=== PATIENT | male | born 1955 | race Caucasian/White ===

== ENCOUNTER → 2017-11-14 | Outpatient (CLI) | payer OTHER ==
[~2017-11-14] MED LIST: NORCO 5-325 TA1 EACH PO; PENICILLIN VK500 M1 PO
--- NOTE | 2017-11-14 13:23 | 2DMMODE ---
[place] [address] 2 D/M-MODE ECHOCARDIOGRAM Name: JESSADAMS Josie Room: [facility]#: [id number] Admission: 11/14/17 Attend Phys: Gabrielle Valenzuela Discharge: Date of : 55 Date of Service: 11/14/17 1322 Report #: [id number] THIS REPORT FOR: //name// APPROVED REPORT Study performed: 11/14/2017 10:13:23 EXAM: Comprehensive 2D, Doppler, and color-flow Echocardiogram Patient Location: Out-Patient Status: routine BSA: 2.39 HR: 68 bpm BP: 126/70 mmHg Other Information Study Quality: Good Indications Murmur Pulmonary effusion 2D Dimensions LVEF(%): 78.97 (>50%) IVSd: 11.82 (7-11mm) LVOT Diam: 20.91 (18-24mm) LVDd: 48.81 mm PWd: 11.42 (7-11mm) Ascending Ao: 32.71 (22-36mm) LVDs: 25.53 (25-40mm) Aortic Root: 33.42 mm Kerr's LVEF: 78.97 % Volumes Left Atrial Volume (Systole) LA ESV Index: 16.50 mL/m2 Aortic Valve AoV Peak Jules.: 1.65 m/s AO Peak Gr.: 10.89 mmHg LVOT Max P.30 mmHg AO Mean Gr.: 6.27 mmHg LVOT Mean P.64 mmHg LVOT Max V: 1.75 m/s AO V2 VTI: 28.38 cm LVOT Mean V: 1.08 m/s ALMA (VTI): 3.98 cm2 LVOT V1 VTI: 32.94 cm Mitral Valve E/A Ratio: 0.76 [place] [address] 2 D/M-MODE ECHOCARDIOGRAM Name: ADAMS MERCADO Room: [facility]#: [id number] Admission: 11/14/17 Attend Phys: Gabrielle Valenzuela Discharge: Date of : 55 Date of Service: 11/14/17 1322 Report #: [id number] MV Decel. Time: 279.71 ms MV E Max Jules.: 0.52 m/s MV PHT: 81.12 ms MVA (PHT): 2.71 cm2 TDI E/Lateral E': 5.20 E/Medial E': 7.43 Medial E' Jules.: 0.07 m/s Lateral E' Jules.: 0.10 m/s Pulmonary Valve PV Peak Jules.: 1.19 m/s PV Peak Gr.: 5.71 mmHg Tricuspid Valve RAP Estimate: 5.00 mmHg TR Peak Gr.: 18.30 mmHg RVSP: 23.30 mmHg PA Pressure: 23.30 mmHg Left Ventricle The left ventricle is normal size. There is normal LV segmental wall motion. Mild concentric left ventricular hypertrophy. Left ventricular systolic function is normal. LVEF is 60-65%. Grade I - abnormal relaxation pattern. Right Ventricle The right ventricle is normal size. The right ventricular systolic function is normal. Atria The left atrium size is normal. The right atrium size is normal. Aortic Valve The aortic valve is normal in structure. No aortic regurgitation is present. There is no aortic valvular stenosis. Mitral Valve The mitral valve is normal in structure. There is no mitral valve regurgitation noted. No evidence of mitral valve stenosis. Tricuspid Valve The tricuspid valve is normal in structure. Mild tricuspid regurgitation. The RVSP is 25 mmHg. Pulmonic Valve The pulmonary valve is normal in structure[place] [address] 2 D/M-MODE ECHOCARDIOGRAM Name: ADAMS MERCADO Room: [facility]#: [id number] Admission: 11/14/17 Attend Phys: Gabrielle Valenzuela Discharge: Date of : 55 Date of Service: 11/14/17 1322 Report #: [id number] regurgitation. Great Vessels The aortic root is normal in size. IVC is normal in size and collapses with >50% inspiration Pericardium There is no pericardial effusion. <Conclusion> The left ventricle is normal size. Mild concentric left ventricular hypertrophy. Left ventricular systolic function is normal. LVEF is 60-65%. Grade I - abnormal relaxation pattern. Mild tricuspid regurgitation. The RVSP is 25 mmHg. IVC is normal in size and collapses with >50% inspiration <ELECTRONICALLY SIGNED> By: Vipul Dill MD, FACC 11/14/17 1322 132 21 Vipul Dill MD, FACC /INF
== END ==
LOC: M.CRD 09:46
DX: I07.1 Rheumatic tricuspid insufficiency (principal); I37.1 Nonrheumatic pulmonary valve insufficiency

== ENCOUNTER 2019-04-21 21:30 | Inpatient (IN) | payer OTHER ==
[~2019-04-21] VITALS: Ht 188 cm; Wt 112.2 kg
[2019-04-21 21:36] VITALS: BP 185/81
[2019-04-21] MEDS ORDERED: CHOLESTEROL PILL (21:41)
[2019-04-21] MEDS ORDERED: LISINOPRIL (21:41)
[2019-04-21 23:05] LABS: INFLUENZA A ANTIGEN Negative (Negative); INFLUENZA B ANTIGEN Negative (Negative)
[2019-04-21 23:44] LABS: CALCIUM 8.5 mg/dL (8.5-10.1); CREATININE 1.4 mg/dL (0.6-1.3); POTASSIUM 3.5 mmol/L (3.5-5.1)
[2019-04-21 23:46] LABS: ABSOLUTE BASOPHILS 0.1 thou/uL (0.0-0.2); ABSOLUTE LYMPHOCYTES 1.1 thou/uL (0.8-5.3); ABSOLUTE MONOCYTES 0.4 thou/uL (0.0-1.2); ABSOLUTE NEUTROPHILS 5.8 thou/uL (1.6-8.1); BASOPHILS 1.1 %; EOSINOPHILS 0.4 %; HEMATOCRIT 45.5 % (42.0-52.0); HEMOGLOBIN 15.6 gm/dL (14.0-18.0); LYMPHOCYTES 14.9 %; MCH 30.9 pg (26.0-34.0); MCHC 34.3 g/dL (28.0-37.0); MCV 90.2 fL (80.0-100.0); MONOCYTES 5.9 %; MPV 9.4 fl. (7.2-11.1); NUCLEATED RBCS 0 /100WBC; PLATELET COUNT* 150 thou/uL (150-400); POLYS 77.7 %; RBC 5.04 mil/uL (4.50-6.00); RDW-CV 13.7 % (10.5-14.5); WBC 7.5 thou/uL (4.0-11.0)
[2019-04-21 23:54] LABS: ALBUMIN 3.4 g/dL (3.4-5.0); TOTAL BILIRUBIN 0.3 mg/dL (<0.1-1.0); TOTAL PROTEIN 7.3 g/dL (6.4-8.2)
[2019-04-22 01:17] LABS: BE -1.7 mmol/L (-2 to +3); PCO2 36.6 mmHg (35.0-45.0); PO2 73.7 mmHg (75.0-100.0); pH 7.406 (7.340-7.450)
[2019-04-22 01:45] VITALS: BP 114/59; BP 137/61
[2019-04-22 04:00] VITALS: BP 134/61
[2019-04-22 04:21] LABS: BE -3.7 mmol/L (-2 to +3); PCO2 33.4 mmHg (35.0-45.0); PO2 89.9 mmHg (75.0-100.0); pH 7.399 (7.340-7.450)
--- NOTE | 2019-04-22 05:14 | NUR ---
PT ADMITTED TO FLOOR AT 0136, TELE MONITORING PLACED, ASSESSMENTS COMPLETED AT BEDSIDE. PT IS CURRENTLY MAINTAINING O2 SATS >92% ON 5L NC. PT STATED HE IS FEELING SO MUCH BETTER NOW THEN WHEN HE FIRST CAME IN. PT IS AWAKE IN BED AT THIS TIME, CALL LIGHT WITHIN REACH.
[2019-04-22 07:23] VITALS: BP 135/65
[2019-04-22] MEDS ORDERED: LIPITOR10 MG PO (08:23)
[2019-04-22] MEDS ORDERED: LISINOPRIL10 MG PO (08:23)
--- NOTE | 2019-04-22 08:35 | NUR ---
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 PLACE ORDERED, TRACING SR- UPON ASSESSMENT PT NOTED TO BE RESTING IN BED, TALKING ON PHONE- PT A&O X4- CONTINENT OF BOWEL AND BLADDER- UP AD-NELSY IN ROOM, STEADY GAIT NOTED- COURSE LUNG SOUNDS, WITH AUDIBLE WHEEZING NOTED- DYSPNEA NOTED ON EXERTION- LOOSE NON-PRODUCTIVE COUGH NOTED- VSS, O2 SAT 95% ON 5L VIA NC- ABD ROUND/FIRM/NON-TENDER, BS X4 QUADS- LAST BM REPORTED X2 DAYS AGO- IV NOTED TO LEFT WRIST INTACT, IVF FINISHED THIS AM PRESCRIBED WITH IV ABT GIVEN- NICOTEINE PATCH PLACED TO RUE THIS AM PRESCIBED- PT DENIES ANY C/O PAIN/DISCOMFORT AT THIS TIME- CALL LIGHT AND PERSONAL BELONGINGS WITH IN REACH- PT MAKES NEEDS KNOWN- ALL NEEDS MET AT THIS TIME-WCTM
[2019-04-22 09:24] LABS: ANION GAP 15 mmol/L (7-16); BUN 13 mg/dL (7-18); CALCIUM 8.4 mg/dL (8.5-10.1); CHLORIDE 100 mmol/L (98-107); CHOLESTEROL 94 mg/dL (<200); CO2 21 mmol/L (21-32); CREATININE 1.3 mg/dL (0.6-1.3); GLUCOSE 147 mg/dL (70-99); HDL CHOLESTEROL 23 mg/dL (>40); LDL CHOLESTEROL 62 mg/dL (<100); POTASSIUM 3.7 mmol/L (3.5-5.1); SODIUM 136 mmol/L (136-145); TC:HDL 4.1 Ratio (Not establshd); TRIGLYCERIDE 48 mg/dL (<150); VLDL 10 mg/dL (<40)
[2019-04-22 09:26] LABS: SERUM ASSESSMENT Clear
[2019-04-22 11:55] VITALS: BP 130/62
--- NOTE | 2019-04-22 13:31 | 2DMMODE ---
[place] [address] 2 D/M-MODE ECHOCARDIOGRAM Name: JESSADAMS Josie Room: [address] IN [facility]#: [id number] Admission: 04/22/19 Attend Phys: Dagoberto Ram, Discharge: Date of : 55 Date of Service: 04/22/19 1331 Report #: [id number] THIS REPORT FOR: //name// APPROVED REPORT Study performed: 04/22/2019 10:31:57 EXAM: Comprehensive 2D, Doppler, and color-flow Echocardiogram Patient Location: In-Patient Room #: [facility] Status: routine BSA: 2.36 HR: 95 bpm BP: 135/65 mmHg Rhythm: NSR Other Information Study Quality: Good Indications COPD Dyspnea 2D Dimensions IVSd: 14.09 (7-11mm) LVOT Diam: 20.14 (18-24mm) LVDd: 52.60 mm PWd: 11.82 (7-11mm) Ascending Ao: 37.59 (22-36mm) LVDs: 22.82 (25-40mm) Aortic Root: 31.56 mm Volumes Left Atrial Volume (Systole) LA ESV Index: 24.20 mL/m2 Aortic Valve AoV Peak Jules.: 2.07 m/s AO Peak Gr.: 17.17 mmHg LVOT Max P.63 mmHg AO Mean Gr.: 10.15 mmHg LVOT Mean P.95 mmHg LVOT Max V: 1.98 m/s AO V2 VTI: 36.13 cm LVOT Mean V: 1.30 m/s ALMA (VTI): 2.92 cm2 LVOT V1 VTI: 33.08 cm Mitral Valve E/A Ratio: 0.80 MV Decel. Time: 233.63 [place] [address] 2 D/M-MODE ECHOCARDIOGRAM Name: ADAMS MERCADO Room: [address] IN [facility].#: [id number] Admission: 04/22/19 Attend Phys: Dagoberto Ram, Discharge: Date of : 55 Date of Service: 04/22/19 1331 Report #: [id number] MV E Max Jules.: 0.89 m/s MV PHT: 67.75 ms MVA (PHT): 3.25 cm2 TDI E/Lateral E': 8.09 E/Medial E': 6.36 Medial E' Jules.: 0.14 m/s Lateral E' Jules.: 0.11 m/s Pulmonary Valve PV Peak Jules.: 1.23 m/s PV Peak Gr.: 6.10 mmHg Left Ventricle The left ventricle is normal size. There is normal LV segmental wall motion. Mild concentric left ventricular hypertrophy. Left ventricular systolic function is normal. The left ventricular ejection fraction is within the normal range. LVEF is 65-70%. Grade I - abnormal relaxation pattern. Right Ventricle The right ventricle is normal size. The right ventricular systolic function is normal. Atria The left atrium size is normal. The right atrium size is normal. Aortic Valve The aortic valve is normal in structure. No aortic regurgitation is present. There is no aortic valvular stenosis. Mitral Valve The mitral valve is normal in structure. Trace mitral regurgitation. No evidence of mitral valve stenosis. Tricuspid Valve The tricuspid valve is normal in structure. Trace tricuspid regurgitation. Unable to assess PA pressure. Pulmonic Valve The pulmonary valve is normal in structure. Trace pulmonic regurgitation. Great Vessels The aortic root is normal in size. IVC is normal in size and collapses >50% [place] [address] 2 D/M-MODE ECHOCARDIOGRAM Name: ADAMS MERCADO Room: [address] IN [facility]#: [id number] Admission: 04/22/19 Attend Phys: Dagoberto Ram, Discharge: Date of : 55 Date of Service: 04/22/19 1331 Report #: [id number] Pericardium There is no pericardial effusion. <Conclusion> Mild concentric left ventricular hypertrophy. LVEF is 65-70%. <ELECTRONICALLY SIGNED> By: Adithya Haider MD, FACC 04/22/191330 30 30 Adithya Haider MD, FAC /INF
--- NOTE | 2019-04-22 14:09 | EKG ---
[place] [address] ELECTROCARDIOGRAM REPORT Name: ADAMS MERCADO Room: [address] ADM IN M.R.#: [id number] Admission: 04/22/19 Attend Phys: Dagoberto Ram MD Discharge: Date of : 55 Report #: [id number] THIS REPORT FOR: //name// [facility] Test Date: 2019-04-22 Test Time: 02:56:07 Pat Name: ADAMS MERCADO Department: Room: [address] Gender: M Advisory Internship: FANY : 1955 Requested By: aDgoberto Ram Order Number: [id number] Reading MD: Adithya Haider Measurements Intervals [place] Rate: 93 P: 81 VA: 138 QRS: 43 QRSD: 89 T: QT: 355 QTc: 442 Interpretive Statements Sinus rhythm Probable left atrial enlargement LVH with secondary repolarization abnormality No previous ECG available for comparison Electronically Signed On 04-22-2019 14:09:03 MANAGER CARDIAC CATH by Adithya Haider [email or web address] <ELECTRONICALLY SIGNED> By: Adithya Haider MD, [facility] 04/22/19 1409 025 025 Adithya Haider MD, FACC /EPI
--- NOTE | 2019-04-22 15:37 | NUR ---
cm completed initial assessment to discuss d/c planning. pt lives at home, . employeed and active. independent w/adls. pt has no dmes. no hx w/snf or hh. dr carcamo asked cm to fax "doctors note" to pt's employer per pt's request. cm contact pt's employer and was told by MJ in HR that I could not fax note. pt would have to call "[employer]" and "open a case" and then all corresponding notes need to be sent to third constitution party company. cm notified pt and gave him a copy of dr. carcamo's "doctor's note." cm to remain avail to assist as needed.
[2019-04-22 16:00] VITALS: BP 153/69
[2019-04-22 20:00] VITALS: BP 153/91
[2019-04-23] VITALS: BP 124/54
[2019-04-23 02:06] LABS: GLYCOHEMOGLOBIN (HGB A1C) 5.4 % (4.8-5.6)
[2019-04-23 04:00] VITALS: BP 121/51
[2019-04-23 04:21] LABS: HEMOGLOBIN 14.3 gm/dL (14.0-18.0); MCH 30.6 pg (26.0-34.0); MCHC 34.1 g/dL (28.0-37.0); MCV 89.7 fL (80.0-100.0); MPV 8.9 fl. (7.2-11.1); RBC 4.69 mil/uL (4.50-6.00); RDW-CV 13.6 % (10.5-14.5); WBC 12.5 thou/uL (4.0-11.0)
[2019-04-23 04:41] LABS: ALBUMIN 2.9 g/dL (3.4-5.0); CALCIUM 8.7 mg/dL (8.5-10.1); CREATININE 1.2 mg/dL (0.6-1.3); MAGNESIUM 1.9 mg/dL (1.8-2.4); POTASSIUM 4.1 mmol/L (3.5-5.1); TOTAL BILIRUBIN 0.3 mg/dL (<0.1-1.0); TOTAL PROTEIN 6.8 g/dL (6.4-8.2)
--- NOTE | 2019-04-23 06:20 | NUR ---
ASSUMED CARE OF PT AFTER REPORT AT 1930. PT A&OX4. VSS. PHYSICAL ASSESSMENT COMPLETED AND CHARTED. PT ON RA. PT TRACING SR ON TELE. PT UPADLIB TO RESTROOM. PT REQUESTED FOR SLEEPING MEDS- DR BULLARD MADE AWARE WITH NEW ORDERS. PT ABLE TO SLEEP WELL ON THE RECLINER. PT DENIES ANY PAIN OR DISCOMFORT. CALL LIGHT WITHIN REACH.
[2019-04-23 08:00] VITALS: BP 134/58
[2019-04-23 12:12] VITALS: BP 127/62
--- NOTE | 2019-04-23 14:03 | NUR ---
ORDER RECEIVED TO SET UP NEBULIZER FOR PT. MET WITH PT, HAD NO PREFERENCE OF DME, SET UP NEBULIZER THRU [facility] DELIVERED IT TO PT'S ROOM.
[2019-04-23 16:59] VITALS: BP 126/57
[2019-04-23 20:00] VITALS: BP 123/62
[2019-04-24] VITALS: BP 100/61
[2019-04-24 04:00] VITALS: BP 109/59
--- NOTE | 2019-04-24 07:56 | NUR ---
ASSUMED PATIENT CARE AT 1900. ASSESSMENT COMPLETED CHARTED. PATIENT IS NSR ON THE MONITOR. HOURLY ROUNDING IN PLACE FOR PATIENT SAFETY. CLWR.
[2019-04-24 08:00] VITALS: BP 136/67
--- NOTE | 2019-04-24 09:39 | NUR ---
PATIENT CARE ASSUMED AT 0730. PT UP IN RECLINER WITH STREET CLOTHES ON. SEE DOCUMENTED ASSESSMENT.
[2019-04-24 12:00] VITALS: BP 148/78
[2019-04-24 16:00] VITALS: BP 132/70
--- NOTE | 2019-04-24 17:25 | NUR ---
PATIENT PROGRESSING TOWARDS GOALS. LESS WHEEZING AND DYSPNEA THIS AFTERNOON. ABLE TO SHOWER. PATIENT IS COMMITTED TO NOT RESUME SMOKING. VSS. FAMILY HAS VISITED.
[2019-04-24 20:00] VITALS: BP 131/67
[2019-04-25] VITALS: BP 137/82
[2019-04-25 04:00] VITALS: BP 150/72
[2019-04-25 05:07] LABS: HEMATOCRIT 40.9 % (42.0-52.0); HEMOGLOBIN 13.8 gm/dL (14.0-18.0); MCH 30.5 pg (26.0-34.0); MCHC 33.8 g/dL (28.0-37.0); MPV 9.4 fl. (7.2-11.1); RBC 4.55 mil/uL (4.50-6.00); RDW-CV 13.4 % (10.5-14.5); WBC 15.2 thou/uL (4.0-11.0)
[2019-04-25 05:31] LABS: CALCIUM 8.9 mg/dL (8.5-10.1); POTASSIUM 4.1 mmol/L (3.5-5.1)
[2019-04-25 08:00] VITALS: BP 107/67
--- NOTE | 2019-04-25 08:00 | NUR ---
Pt resting in bed, appears alert o x 3, denues chest pain, SOB, pain or discomfort, SL, in RA, NSR on minitor
--- NOTE | 2019-04-25 10:49 | NUR ---
PT UP IN HALLS, ANTICIPATED DC SOON. HAS NEBULIZER AT BEDSIDE. DENIES OTHER NEEDS
[2019-04-25 11:59] VITALS: BP 111/56
[2019-04-25 15:39] VITALS: BP 117/56
[2019-04-25 20:00] VITALS: BP 139/65
[2019-04-26 07:40] VITALS: BP 136/64
[2019-04-26] MEDS ORDERED: PREDNISONE 10 M10 MG PO (08:19)
[2019-04-26] MEDS ORDERED: LEVAQUIN 500 M500 M1 PO (08:19)
[2019-04-26] MEDS ORDERED: COMBIVENT INH (08:19)
[2019-04-26] MEDS ORDERED: IPRAT-ALBUT 0.5-3 ML INH (08:19)
[2019-04-26] MEDS ORDERED: SYMBICORT160 MCG/4. INH (08:19)
[2019-04-26 11:47] VITALS: BP 136/64
--- NOTE | 2019-04-26 11:56 | NUR ---
PT A&OX4 VSS. PT UP IN RECLINER DRESSED AND WAITING FOR BREAKFAST THIS AM AT TIME OF THIS NURSE'S ASSESSMENT. PT WAITING FOR CXR. PT DISCHARGE PENDING R/T CXR RESULTS. PT HAS NO IV ACCESS AT THIS TIME. CXR RESULTS REPORTED TO DR BULLARD AND DC APPROVED. PT STATES UNDERSTANDING OF DC INSTRUCTIONS AND RX PROVIDED AT [facility]. PT AMBULATES FROM UNIT INDEPENDENTLY, GAIT STEADY.
== END 2019-04-26 11:56 | disposition home or self-care (01) | DRG 177 ==
LOC: M.ERS 21:30 → M.TBA-ER 04-22 00:34 → M.2W 04-22 00:34 → M.ORTHSURG 04-25 19:24
PROVIDERS: Emergency Medicine; Internal Medicine; Internal Medicine Pulmonary Disease; ADMIT Internal Medicine
DX: J15.6 Pneumonia due to other Gram-negative bacteria (principal); J96.01 Acute respiratory failure with hypoxia; J44.0 Chronic obstructive pulmonary disease with (acute) lower respiratory infection; N17.9 Acute kidney failure, unspecified; J44.1 Chronic obstructive pulmonary disease with (acute) exacerbation; J20.9 Acute bronchitis, unspecified; F17.210 Nicotine dependence, cigarettes, uncomplicated; I10 Essential (primary) hypertension; R73.9 Hyperglycemia, unspecified; E78.5 Hyperlipidemia, unspecified; Z79.2 Long term (current) use of antibiotics; Z79.899 Other long term (current) drug therapy

== ENCOUNTER → 2020-05-19 | Outpatient (CLI) | payer OTHER ==
[2020-05-19] VITALS (8 sets, daily range): BP systolic 98–125; BP diastolic 39–78
[~2020-05-19] VITALS: Ht 185.4 cm; Wt 119.7 kg
[~2020-05-19] MED LIST changes: +CHOLESTEROL PILL; +COMBIVENT INH; +IPRAT-ALBUT 0.5-3 ML INH; +LEVAQUIN 500 M500 M1 PO; +LIPITOR10 MG PO; +LISINOPRIL; +LISINOPRIL10 MG PO; +PREDNISONE 10 M10 MG PO; +SYMBICORT160 MCG/4. INH
[2020-05-19 10:38] LABS: HEMATOCRIT 42.7 % (42.0-52.0); HEMOGLOBIN 14.4 gm/dL (14.0-18.0); MCH 30.8 pg (26.0-34.0); MCHC 33.8 g/dL (28.0-37.0); MCV 91.1 fL (80.0-100.0); MPV 8.1 fl. (7.2-11.1); RBC 4.68 mil/uL (4.50-6.00); RDW-CV 13.2 % (10.5-14.5)
[2020-05-19 10:48] LABS: ANION GAP 9 mmol/L (7-16); BUN 15 mg/dL (7-18); CALCIUM 9.1 mg/dL (8.5-10.1); CHLORIDE 103 mmol/L (98-107); CO2 26 mmol/L (21-32); CREATININE 1.4 mg/dL (0.6-1.3); GLUCOSE 97 mg/dL (70-99); POTASSIUM 4.1 mmol/L (3.5-5.1); SODIUM 138 mmol/L (136-145)
[2020-05-19 10:49] LABS: APTT 27.6 Seconds (25.0-31.3); PROTIME 10.8 Seconds (9.20-11.50)
[2020-05-19 10:52] LABS: ALBUMIN 3.7 g/dL (3.4-5.0); ALKALINE PHOSPHATASE 85 U/L (46-116); CHOLESTEROL 193 mg/dL (<200); HDL CHOLESTEROL 34 mg/dL (>40); LDL CHOLESTEROL 145 mg/dL (<100); SGOT 18 U/L (15-37); SGPT 37 U/L (30-65); TC:HDL 5.7 Ratio (Not establshd); TOTAL BILIRUBIN 0.4 mg/dL (<0.1-1.0); TOTAL PROTEIN 7.7 g/dL (6.4-8.2); TRIGLYCERIDE 73 mg/dL (<150); VLDL 15 mg/dL (<40)
[2020-05-19 10:54] LABS: SERUM ASSESSMENT Clear
--- NOTE | 2020-05-19 14:10 | EKG ---
[place] [address] ELECTROCARDIOGRAM REPORT Name: JESSADAMS Josie Room: [facility]#: [id number] Admission: 05/19/20 Attend Phys: Vipul Dill, Discharge: Date of : 55 Date of Service: 05/19/20 1120 Report #: [id number] THIS REPORT FOR: //name// [facility] Test Date: 2020-05-19 Test Time: 11:20:49 Pat Name: DAAMS MERCADO Department: Room: Gender: Office Administrator: : 1955 Requested By: Vipul Dill Order Number: [id number] Reading MD: Vipul Dill Measurements Intervals [place] Rate: 53 P: 73 FL: 148 QRS: 49 QRSD: 88 T: 139 QT: 469 QTc: 441 Interpretive Statements Sinus rhythm LVH with secondary repolarization abnormality Compared to ECG 04/22/2019 02:56:07 No significant changes Electronically Signed On 05-19-2020 14:10:20 SALES AGENT INSURANCE by Vipul Dill [email or web address] <ELECTRONICALLY SIGNED> By: Vipul Dill MD, [facility] 05/19/20 1410 1120 1120 Vipul Dill MD, [facility] /EPI
--- NOTE | 2020-05-19 17:37 | CARD ---
[address] [address] CARDIAC CATH REPORT Name: ADAMS MERCADO Room: [facility]#: [id number] Admission: 05/19/20 Attend Phys: Vipul Dill MD Discharge: Date of : 55 Report #: [id number] THIS REPORT FOR: cc: Bridgett Vann Ann FNPC ~ Vipul Dill MD [facility] APPROVED REPORT Study performed: 05/19/2020 11:14:27 Patient Details Patient Status: Out-Patient Room #: The patient is a 64 year-old male Event Personnel Vipul Dill Lavatory Attendant, Britni Cosme RN Consulting Manager, Gladys Catalan RN Monitor, Juanjo Bell COMMUNICATIONS CONSULTANT Scrub Procedures Performed Art Access - R radial artery, Art Access - R femoral artery, Left Heart Cath w/or w/o Coronaries LHC, Femoral Hemostasis w/ Mynx , Radial Hemostasis with Hemoband Admission/Lab Medications/Medications given during procedure Nitroglycerin IA 400 mcg, Verapamil IA 5 mg Procedure Narrative The patient was brought electively to the Cardiac Catheterization Laboratory and was prepped and draped in a sterile manner. The right femoral was infiltrated with 2% Lidocaine subcutaneous anesthesia. A Midwest 6 FR sheath was inserted into the right femoral artery. Coronary angiography was performed using coronary diagnostic catheters. The right coronary system was accessed and visualized with a 3DRC 6fr catheter. The left coronary system was accessed and visualized with a JL5 6fr catheter. The left ventricle was accessed and visualized with a PIGTAIL 6fr catheter. Left ventricular/Aortic Valve gradient assessed via catheter pullback. Left ventriculogram was performed in BERGER projection. Pre-demployment femoral angiogram was performed . Closure device was deployed with a 6 Fr Mynx. The patient tolerated the procedure well and there were no complications associated with the procedure. There was no hematoma. Cardiac Catheterization was first attempted via radial artery from the right. Unable to cannulate ostium of artery well enough [place] [address] CARDIAC CATH REPORT Name: ADAMS MERCADO Josie Room: [facility]#: [id number] Admission: 05/19/20 Attend Phys: Vipul Dill MD Discharge: Date of : 55 Report #: [id number] Decision was made to perform procedure from the groin. Intraoperative Conscious Sedation Sedation start time: 11:54 Case end Time: 12:24 Fentanyl 75 mcg Versed 2 mg Fluoro Time: 10.7 minutes Dose: DAP 668197 cGycm2 1451 mGy Contrast Type and Amount: Visipaque 170 ml Coronary Angiography The patient's coronary anatomy is right dominant. Diagnostic Cath Left Main The left main is mildly up to 10% plaque. The left main trifurcates into a left anterior descending, intermediate ramus and circumflex coronary artery. LAD The left anterior descending is mildly plaqued with 10% proximal, 20% mid and 10% narrowing distally. Diagonal 1 The first diagonal branch is a large branch vessel that is normal. Diagonal 2 The second diagonal branch is a small to moderate size vessel that appears normal. Circumflex The circumflex coronary artery has minimal 10% plaquing in its midportion. OM1 A small first obtuse marginal branch is normal. OM2 A moderate-sized branch second obtuse marginal branch is normal. Right Coronary The right coronary artery is diffusely mildly plaqued with 30% narrowing proximally and 10% narrowing in the midportion. R PDA The PDA has minimal 10% plaquing proximally. RPLV The posterior lateral LV branch appears normal and is moderate in size and branch. Left Ventriculography The left ventricle is normal in size with normal contractility. The left ventricular ejection fraction is estimated to be 60%. Hemodynamics The aortic pressure is 107/46 mmHg with a mean of 53 mmHg. The left ventricular pressure is 109/6 mmHg with a mean of mmHg. The left ventricular end diastolic pressure is 31 [place] [address] CARDIAC CATH REPORT Name: ADAMS MERCADO [id number] Admission: 05/19/20 Attend Phys: Vipul Dill MD Discharge: Date of : 55 Report #: [id number] Conclusion 1. Diffuse nonocclusive coronary artery disease as outlined above. 2. Normal left ventricular systolic pressure. 3. Moderately elevated left ventricular end-diastolic pressure. Recommendations 1. Continue medical management and aggressive risk factor modification. <ELECTRONICALLY SIGNED> By: Vipul Dill MD, [facility] 05/19/20 1737 [id number] Dill MD, FACC /INF
== END | disposition home or self-care (01) ==
LOC: M.CL 09:48
PROVIDERS: ATTEND Internal Medicine Cardiovascular Disease
DX: R07.9 Chest pain, unspecified (principal); I25.10 Atherosclerotic heart disease of native coronary artery without angina pectoris; I10 Essential (primary) hypertension; J44.9 Chronic obstructive pulmonary disease, unspecified; Z98.890 Other specified postprocedural states; Z79.899 Other long term (current) drug therapy; Z87.891 Personal history of nicotine dependence; Z20.828 Contact with and (suspected) exposure to other viral communicable diseases

== ENCOUNTER → 2020-07-20 | Outpatient (CLI) | payer OTHER ==
[2020-07-20 11:56] LABS: CALCIUM 9.5 mg/dL (8.5-10.1); CREATININE 1.3 mg/dL (0.6-1.3); POTASSIUM 4.9 mmol/L (3.5-5.1)
== END ==
LOC: M.LAB 11:13
PROVIDERS: ATTEND Registered Nurse
DX: N18.9 Chronic kidney disease, unspecified (principal)

== ENCOUNTER → 2021-03-22 | Outpatient (CLI) | payer MEDICARE, OTHER ==
[2021-03-22 09:14] LABS: CREATININE 1.3 mg/dL (0.6-1.3)
== END ==
LOC: M.LAB 08:33 → M.CT 10:00
PROVIDERS: ATTEND Nurse Practitioner Family
DX: R91.1 Solitary pulmonary nodule (principal); I25.10 Atherosclerotic heart disease of native coronary artery without angina pectoris; M41.84 Other forms of scoliosis, thoracic region